=== PATIENT | male | born 1990 | race American Indian/Alaskan Native ===

== ENCOUNTER 2019-08-01 09:58 | Emergency (ER) | payer OTHER ==
[2019-08-01 10:02] VITALS: BP 134/91
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
== END 2019-08-01 14:33 | disposition left against medical advice (07) ==
LOC: ED 09:58
DX: S16.1XXA Strain of muscle, fascia and tendon at neck level, initial encounter (principal); M79.18 Myalgia, other site; V49.49XA Driver injured in collision with other motor vehicles in traffic accident, initial encounter; Y93.89 Activity, other specified; Y92.488 Other paved roadways as the place of occurrence of the external cause; Y99.8 Other external cause status
CPT/HCPCS: 99281